=== PATIENT | male | born 1960 | race Asian ===

== ENCOUNTER 2018-06-15 03:22 | Emergency (ER) | payer SELFPAY ==
[~2018-06-15] VITALS: Ht 170.2 cm; Wt 72.6 kg
[2018-06-15 03:31] VITALS: BP_SYST 144
[2018-06-15] MEDS ORDERED: NACL 0.9% 1,000 ML IV ONE ×2 (03:31→03:45)
[2018-06-15] MEDS ORDERED: DIPHENHYDRAMINE INJ 50 MG/ML VIAL IVP ONE (04:00)
[2018-06-15] MEDS ORDERED: IPRATROPIUM BROM 0.5 MG/2.5 ML VIAL.NEB (ATROVENT) IH ONE (04:00)
[2018-06-15] MEDS ORDERED: ALBUTEROL SULFATE 0.083% 2.5 MG/3 ML VIAL.NEB IH ONE (04:00)
[2018-06-15] MEDS ORDERED: methylPREDNISolone SOD SUCC/PF 62.5 MG/ML VIAL IVP ONE (04:00)
[2018-06-15] MEDS ORDERED: FAMOTIDINE PF 20 MG/2 ML VIAL IVP ONE (04:00)
[2018-06-15] MEDS ORDERED: EPINEPHrine 1 MG/ML AMP SUBCUT ONE (04:00)
[2018-06-15 04:04] LABS: BILIRUBIN,URINE NEGATIVE (NEGATIVE); BLOOD, URINE NEGATIVE (NEGATIVE); CLARITY/URINE CLEAR (CLEAR); COLOR,URINE YELLOW (YELLOW); GLUCOSE,URINE NEGATIVE (NEGATIVE); KETONES,URINE NEGATIVE (NEGATIVE); LEUKOCYTE ESTERASE ,URINE NEGATIVE (NEGATIVE); NITRITE, URINE NEGATIVE (NEGATIVE); PH,URINE 5.5 (5.0-8.0); PROTEIN URINE NEGATIVE (NEGATIVE); UROBILINOGEN,URINE 0.2 (0.2-1.0)
[2018-06-15 04:10] LABS: BASOPHILS # (AUTO) 0.1 K/uL (0.0-0.2); BASOPHILS % (AUTO) 0.6 % (0.0-2.0); EOSINOPHILS # (AUTO) 0.1 K/uL (0.0-0.4); EOSINOPHILS % (AUTO) 0.8 % (0.0-4.0); HEMOGLOBIN 16.2 g/dL (14.0-18.0); LYMPHOCYTES # (AUTO) 1.9 K/uL (1.0-5.5); LYMPHOCYTES % (AUTO) 20.7 % (20.5-51.5); MEAN CORPUSCULAR HEMOGLOBIN 30 pg (27-31); MEAN CORPUSCULAR HGB CONC 35 % (32-36); MEAN CORPUSCULAR VOLUME 86 fL (79.0-98.0); MONOCYTES # (AUTO) 0.4 K/uL (0.0-1.0); MONOCYTES % (AUTO) 3.9 % (1.7-9.3); NEUTROPHILS # (AUTO) 6.7 K/uL (1.8-7.7); PLATELET COUNT (AUTO) 216 K/uL (130-430); RED BLOOD CELL COUNT(AUTO) 5.43 MIL/uL (4.2-6.2); WHITE BLOOD COUNT (AUTO) 9.2 K/uL (4.8-10.8)
[2018-06-15 04:26] LABS: CALCIUM 8.6 mg/dL (8.4-11.0); CREATININE 1.26 mg/dL (0.55-1.30); POTASSIUM 3.4 mmol/L (3.5-5.1)
[2018-06-15 04:31] LABS: ALBUMIN 3.8 g/dL (3.4-4.8); TOTAL BILIRUBIN 0.6 mg/dL (0.0-1.0)
[2018-06-15 06:12] VITALS: BP_SYST 114
== END 2018-06-15 06:12 | disposition home or self-care (01) ==
LOC: SED 03:22
DX: T78.1XXA Other adverse food reactions, not elsewhere classified, initial encounter (principal); L50.9 Urticaria, unspecified; X58.XXXA Exposure to other specified factors, initial encounter
CPT/HCPCS: 36415; 80053; 81003; 82550; 83690; 85025; 85610; 85730; 94640; 96372; 96374; 96375; 99285; J0171; J1200; J2930; J3490; J7030; J7613

== ENCOUNTER 2020-12-31 22:11 | Emergency (ER) | payer BC, SELFPAY ==
[~2020-12-31] VITALS: Ht 170.2 cm; Wt 72.6 kg
--- NOTE | 2020-12-31 22:30 | NUR ---
PT PLACED IN ER BED 03 GOWNED AND PLACED ON HAND [employer] AND [employer]ER WITH BED LOW AND LOCKED
[2020-12-31 22:33] VITALS: BP_SYST 136
--- NOTE | 2020-12-31 22:40 | NUR ---
PT BIB SELF FROM HOME A&Ox3 AMBULATORY WITHOUT ASSISTANCE PT CC FLU LIKE SYMPOTOMS BODY ACHES CHILLS x2 WEEKS PT COMPLAINS OF LOWER BACK PAIN 6/10 ACHEY TYPE PAIN NON RADIATING. PT STATES HE IS SHORT OF BREATH BUT UPON OBSERVATION FROM OUTSIDE THE ROOM PT BREATHES NORMALLY RESTING QUIETLY AND THEN UPON ENTERING THE ROOM PT BEGINS TO HYPERVENTILATE. PT DENIES CHEST PAIN AND ABDOMNIAL PAIN. PT VITALS STABLE WILL CONTINUE TO MONITOR.
--- NOTE | 2020-12-31 23:30 | NUR ---
ER MD HAYS AT BEDSIDE EVALUATING PT
[2021-01-01] MEDS ORDERED: NACL 0.9% 1,000 ML IV ONE
[2021-01-01 00:09] LABS: MEAN CORPUSCULAR HEMOGLOBIN 30 pg (27-31)
[2021-01-01 00:20] LABS: BASOPHILS % (AUTO) 0.5 % (0.0-2.0); HEMATOCRIT 35.2 % (36-54); HEMOGLOBIN 12.6 g/dL (14.0-18.0); LYMPHOCYTES # (AUTO) 0.8 K/uL (1.0-5.5); LYMPHOCYTES % (AUTO) 16.8 % (20.5-51.5); MEAN CORPUSCULAR HGB CONC 36 % (32-36); MEAN CORPUSCULAR VOLUME 83 fL (79.0-98.0); MONOCYTES # (AUTO) 0.3 K/uL (0.0-1.0); MONOCYTES % (AUTO) 5.7 % (1.7-9.3); NEUTROPHILS # (AUTO) 3.9 K/uL (1.8-7.7); PLATELET COUNT (AUTO) 116 K/uL (130-430); RED BLOOD CELL COUNT(AUTO) 4.22 MIL/uL (4.2-6.2); RED CELL DISTRIBUTION WIDTH 12.6 % (9.0-15.0)
--- NOTE | 2021-01-01 00:20 | NUR ---
HOWIE COVID SWAB AND MRSA SCREEN SAMPLE OBTAINED AND SENT TO LAB
[2021-01-01 00:26] LABS: CALCIUM 7.3 mg/dL (8.4-11.0); CREATININE 1.37 mg/dL (0.55-1.30)
--- NOTE | 2021-01-01 00:28 | NUR ---
# 20 gauge angiocath placed to RIGHT AC. Use of asceptic technique. Opsite placed over site. Blood return noted. Blood for lab drawn from site. Flushed with 10 cc of normal saline. No evidence of infiltration noted. Patient tolerated well.
[2021-01-01 00:32] LABS: TOTAL BILIRUBIN 0.9 mg/dL (0.0-1.0)
[2021-01-01 01:02] LABS: INFLUENZA A&B ANTIGEN SCREEN NEGATIVE FOR A & B (NEGATIVE)
[2021-01-01] MEDS ORDERED: POTASSIUM CHLORIDE 10 MEQ TAB.PRT.SR PO ONE (01:15)
[2021-01-01] MEDS ORDERED: PANTOPRAZOLE SODIUM 40 MG/VIAL (PROTONIX) IVP ONE (01:15)
[2021-01-01] MEDS ORDERED: ONDANSETRON HCL 4 MG/2 ML VIAL IVP ONE (01:15)
--- NOTE | 2021-01-01 01:30 | NUR ---
PT RESTING QUIETLY IN ER BED VITAL SIGNS STABLE WILL CONTINUE TO MONITOR PT
[2021-01-01] MEDS ORDERED: POTASSIUM CHLORIDE 10 MEQ TAB.PRT.SR ONE (01:31)
[2021-01-01] MEDS ORDERED: AZITHROMYCIN 250 MG TABLET PO ONE (01:45)
[2021-01-01 02:10] VITALS: BP_SYST 124
--- NOTE | 2021-01-01 02:10 | NUR ---
Patient given written and verbal discharge instructions and verbalizes understanding. ER MD HAYS discussed with patient the results and treatment provided. Patient in stable condition. ID arm band removed. IV catheter removed intact and dressing applied, no active bleeding. Rx of ZOFRAN, ZITHROMAX, AND POTASSIUM given. Patient educated on pain management and to follow up with PMD. Pain Scale 0/10. Opportunity for questions provided and answered. Medication side effect fact sheet provided.
== END 2021-01-01 02:10 | disposition home or self-care (01) ==
LOC: SED 22:11
DX: J18.9 Pneumonia, unspecified organism (principal); R06.02 Shortness of breath; D64.9 Anemia, unspecified; E87.6 Hypokalemia; N28.9 Disorder of kidney and ureter, unspecified; Z20.822 Contact with and (suspected) exposure to COVID-19
CPT/HCPCS: 36415; 71045; 80053; 83880; 84484; 85025; 85379; 86710; 87426; 93005; 96361; 96374; 96375; 99285; C9113; J2405; J7030; Q0144